=== PATIENT | female | born 1940 | race Caucasian/White ===

== ENCOUNTER 2024-10-14 02:31 | Emergency (ER) | payer MEDICARE, SELFPAY ==
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
[2024-10-14 02:56] VITALS: BP 131/88
[2024-10-14 04:12] VITALS: BP 120/65
[2024-10-14 06:13] VITALS: BP 101/69
--- NOTE | 2024-10-14 06:15 | EDRN ---
Pt.'s son and daughter called, report they are 'about 3 hours away, on our way to get them'.
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
[2024-10-14 14:13] VITALS: BP 124/76
--- NOTE | 2024-10-14 15:13 | CON.MD ---
Consultation - Medical
-
84 yr old F, presenting here after driving from [place] with her for unknown reasons. Pt and were seen circling around and taken to hospital. Neither pt nor is able to provide meaningful explanation for why they drove so far - at
one point pt states 'well we're still trying to pick somewhere so we looking around'. Neither pt nor is able to appreciate the concernfor their safety in this context, in fact pt becomes visibly defensive and irritable when on this line of
questioning. Neither pt nor could say why they were in the hospital - seemed to think that perhaps pts wasn't feeling well, but no insight as to the fact that it is concerning to not know why one is in the hospital 4 hours away from
home.
Spoke to pts daughter (also lives in [place]) separately who reported that pt and have been having cognitive decline for several years. Initially was mild, but recent months have been particularly difficult. As per daughter, they have left the
stove on, have gotten lost while driving multiple times (at times middle of the night), have gotten groceries and left all of them in the car. Daughter has been helping to manage their finances - has observed pt and passing an old checkbook
(inactive account) back and forth repeatedly, says they were confused by thinking it was a bill and were trying to figure out whom of them paid it. She also reports that PCP has advised pt and to considering stopping driving and that he
thinks they should go to assisted living. Of note, daughter is POA for parents - they have appointment set up with assisted living facility tomorrow.
Attempted to discuss assisted living and their PCP's recommendations, but both pt and unable to demonstrate insight about their ability to safely care for themselves. They agree to go to assisted living in January, because that will be a
better time to sell their house - they both deny having any significant memory issues ('just a little forgetful, you know how it is in your 80s'), deny ever getting lost, deny there being any concerns cognitively. Unable to meaningfully explain the
risks associated with their current situation, unable to demonstrate an understanding of why others may even be concerned, unable to demonstrate an understanding of why their living in the home alone is concerning. Neither pt nor is oriented
to time or place - lack of meaningful response upon finding out the actual year and that they're in a completely different state than they thought.
Unspecified dementia
MSE: calm,cooperative,pleasant,speech is normal rate & rhythm,,mood is OK, affect is appropriate & congruent to mood, though irritable at times, thought process is disjointed, thought content: denies SI/HI/AVH, suspect presence of some
paranoia.Disoriented. Memory not formally tested. Insight poor. Judgement poor
Patient is unable to make dispositional decisions at this time - unable to demonstrate meaningful understanding of risks vs benefits of going home vs to assisted living, unable to demonstrate risks of their recent behaviors, unable to demonstrate
insight about their symptoms, unable to demonstrate insight as to need for having supports for their safety. Daughter is POA and is decision maker at this time.
Of note, capacity is a fluctuating assessment and ones capacity can change depending on the situation and the persons immediate cognition, if pts presentation significantly changes capacity can be reassessed (though this would be extremely unlikely
to happen in this particular situation given progressive nature of dementia).
Pt should see outpatient neurologist for formal assessment of dementia
== END 2024-10-14 14:45 | disposition home or self-care (01) ==
LOC: EMR 02:31
PROVIDERS: EMERGENCY PHYSICIAN Student in an Organized Health Care Education/Training Program; OTHER PHYSICIAN Psychiatry & Neurology Psychiatry
DX: F03.90 Unspecified dementia, unspecified severity, without behavioral disturbance, psychotic disturbance, mood disturbance, and anxiety (principal); I10 Essential (primary) hypertension
CPT/HCPCS: 99283